=== PATIENT | male | born 1945 | race Caucasian/White ===

== ENCOUNTER 2017-05-12 07:02 | Inpatient (IN) | payer MEDICARE ==
[~2017-05-12] VITALS: Ht 177.8 cm; Wt 81.8 kg
[~2017-05-12 07:02] MED LIST: ASPI-611 PO; AZO1OS OP; ECHI350C PO; FLUT1DIS4 INH; GINK60TA2 PO; INUL1.5T3 PO; IPRA3AMP IH; LORA1TAB PO; MAGN250T11 PO; MULT-1085 PO; OMEP20TA5 PO; RESV100C PO; [UNRECOGNIZED DRUG - CODE] PO
[2017-05-12] MEDS ORDERED: ipratropium/albuterol 3ml nebule NEB ONE (07:15)
[2017-05-12] MEDS ORDERED: dexamethasone sod phosphate 10mg/ml inj IV STA (07:17)
[2017-05-12] MEDS ORDERED: azithromycin/NS 500mg/250ml 250 ML IV ONE (07:25)
[2017-05-12] MEDS ORDERED: LORazepam 2 mg/ml vial IV ONE (07:25)
[2017-05-12] MEDS ORDERED: CefTRIAXone 2gm/NS 100ml IVPB 100 ML IV ONE (07:25)
[2017-05-12 07:36] LABS: ABG BASE EXCESS -2.6 mmol/L (-2.0-3.0); ABG HCO3 19.4 mmol/L (22.0-26.0); ABG OXYGEN SATURATION 95.5 % (95-98); ABG PCO2 (T) 27.5 mmHg (35.0-48.0); ABG PH (T) 7.467 (7.350-7.450); ABG PO2 (T) 70.1 mmHg (83-108); ALLEN'S TEST Positive; FCOHb 0.8 % (0.5-1.5); FLOW 15 L/min; FMetHb 0.2 % (0.3-1.12); FO2Hb 94.5 % (94-100); RESPIRATORY RATE (OBSERVED) 20 b/min; TOTAL HEMOGLOBIN 16.1 G/dl (14.0-18.0)
[2017-05-12] MEDS ORDERED: LIDOcaine Viscous 15ml cup MM PRN (08:00)
[2017-05-12] MEDS ORDERED: mag hydrox/Alum hydrox/simeth 30ml oral suspension PO ONE (08:00)
[2017-05-12] MEDS: sucralfate 1gm/10ml UD suspension PO SCH (08:07)
[2017-05-12 08:10] LABS: BASOPHILS % (AUTO) 0.1 % (0-1); EOSINOPHILS # (AUTO) 0.1 X10'3 (0-0.9); EOSINOPHILS % (AUTO) 1.3 % (0-6); HEMATOCRIT 45.7 % (42.0-52.0); HEMOGLOBIN 15.7 g/dl (14.0-17.9); LYMPHOCYTES # (AUTO) 0.6 X10'3 (1.1-4.8); LYMPHOCYTES % (AUTO) 6.9 % (21-51); MEAN CORPUSCULAR HEMOGLOBIN 31.6 PG (27.0-31.0); MEAN CORPUSCULAR HGB CONC 34.4 % (33.0-36.5); MEAN CORPUSCULAR VOLUME 91.8 FL (78-98); MEAN PLATELET VOLUME 9.7 FL (7.4-10.4); MONOCYTES % (AUTO) 0.4 % (2-12); NEUTROPHILS # (AUTO) 7.8 X10'3 (1.8-7.7); NEUTROPHILS % (AUTO) 91.3 % (42-75); PLATELET COUNT 170 X10'3 (140-440); RED BLOOD COUNT 4.98 X10'6 (4.70-6.10); RED CELL DISTRIBUTION WIDTH 13.4 % (11.5-14.5); WHITE BLOOD COUNT 8.6 X10'3 (4.5-11.0)
[2017-05-12 08:27] LABS: ALANINE AMINOTRANSFERASE 27 U/L (12-78); ALBUMIN 3.5 G/DL (3.4-5.0); ALKALINE PHOSPHATASE 91 IU/L (46-116); ANION GAP 11 (8-16); ASPARTATE AMINO TRANSFERASE 23 U/L (10-37); BILIRUBIN,TOTAL 0.7 MG/DL (0.1-1.0); BLOOD UREA NITROGEN 19 MG/DL (7-18); BUN/CREATININE RATIO 19.6 (5.4-32.0); CALCIUM 8.4 MG/DL (8.5-10.1); CHLORIDE 106 MMOL/L (99-107); CREATININE 0.97 MG/DL (0.60-1.10); GLUCOSE 101 MG/DL (70-104); MAGNESIUM 1.6 MG/DL (1.5-2.4); SODIUM 142 MMOL/L (135-145); TOTAL CARBON DIOXIDE 25.3 MMOL/L (24-32); TOTAL PROTEIN 7.1 G/DL (6.4-8.2); eGFR 76 ML/MIN
[2017-05-12 08:28] LABS: POTASSIUM 4.2 MMOL/L (3.5-5.1)
[2017-05-12] MEDS ORDERED: potassium Cl 20 mEq SR tablet PO PRN ×2 (09:20)
[2017-05-12] MEDS ORDERED: oseltamivir phos 75mg capsule PO ONE (09:20)
[2017-05-12] MEDS ORDERED: morphine 2 MG/ML inj. syringe IV PRN ×2 (09:20)
[2017-05-12] MEDS ORDERED: acetaminophen 325mg tablet PO PRN (09:20)
[2017-05-12] MEDS ORDERED: potassium Cl 40MEQ/NS 500ml 500 ML IV PRN ×2 (09:20)
[2017-05-12] MEDS ORDERED: magnesium 2GM in 50ml NS 50 ML IV PRN (09:20)
[2017-05-12] MEDS ORDERED: magnesium Cl slow-release 64mg tablet PO PRN (09:20)
[2017-05-12] MEDS ORDERED: magnesium hydroxide 30ml (MOM) UD suspension PO PRN (09:20)
[2017-05-12] MEDS ORDERED: ondansetron/PF 4mg/2ml inj IV PRN (09:20)
[2017-05-12] MEDS ORDERED: magnesium 4gm in 100ml NS 100 ML IV PRN (09:20)
[2017-05-12 10:08] LABS: LARGE PLATELETS FEW; PLATELET ESTIMATE NORMAL
[2017-05-12] MEDS ORDERED: SAW160CA3 (12:24)
[2017-05-12] MEDS ORDERED: CITRUCEL (12:26)
[2017-05-12] MEDS: dorzolamide 2% ophthalmic drops 10ml EACHEYE SCH ×2 (12:35→19:05)
[2017-05-12 16:00] VITALS: BP 108/62
[2017-05-12] MEDS ORDERED: DOXY50CA2 PO (18:13)
[2017-05-12] MEDS ORDERED: TAMS0.4C32 PO (18:13)
[2017-05-12 18:44] VITALS: BP 108/62
[2017-05-12] MEDS: tamsulosin 0.4mg capsule PO SCH (19:04)
[2017-05-12] MEDS ORDERED: GINKGO BILOBA 60 MG PO SCH (20:00)
[2017-05-12] MEDS ORDERED: oseltamivir phos 75mg capsule PO SCH (20:00)
[2017-05-12] MEDS ORDERED: psyllium seed 3.4 gm packet PO SCH (21:00)
[2017-05-12] MEDS: mag hydrox/Alum hydrox/simeth 30ml oral suspension PO PRN (21:27)
[2017-05-12] MEDS: LORazepam 1 MG tablet PO PRN (21:27)
[2017-05-12 22:00] VITALS: BP 96/59
[2017-05-12] MEDS ORDERED: TRAZ-143 PO (22:11)
[2017-05-12] MEDS: traZODone 50mg tablet PO SCH (22:24)
[2017-05-13] MEDS: mag hydrox/Alum hydrox/simeth 30ml oral suspension PO PRN (01:16)
[2017-05-13 05:00] VITALS: BP 103/55
[2017-05-13 05:17] LABS: BASOPHILS % (AUTO) 0.1 % (0-1); EOSINOPHILS # (AUTO) 0.4 X10'3 (0-0.9); HEMATOCRIT 37.7 % (42.0-52.0); HEMOGLOBIN 13.1 g/dl (14.0-17.9); LYMPHOCYTES % (AUTO) 4.9 % (21-51); MEAN CORPUSCULAR HEMOGLOBIN 32.1 PG (27.0-31.0); MEAN CORPUSCULAR HGB CONC 34.6 % (33.0-36.5); MEAN CORPUSCULAR VOLUME 92.6 FL (78-98); MONOCYTES # (AUTO) 1.3 X10'3 (0-0.9); MONOCYTES % (AUTO) 6.3 % (2-12); NEUTROPHILS # (AUTO) 17.5 X10'3 (1.8-7.7); NEUTROPHILS % (AUTO) 86.7 % (42-75); PLATELET COUNT 154 X10'3 (140-440); RED BLOOD COUNT 4.07 X10'6 (4.70-6.10); RED CELL DISTRIBUTION WIDTH 13.1 % (11.5-14.5); WHITE BLOOD COUNT 20.2 X10'3 (4.5-11.0)
[2017-05-13 05:41] LABS: ALANINE AMINOTRANSFERASE 23 U/L (12-78); ALBUMIN 2.7 G/DL (3.4-5.0); ALBUMIN/GLOBULIN RATIO 0.8 (1.1-1.5); ALKALINE PHOSPHATASE 59 IU/L (46-116); ANION GAP 8 (8-16); ASPARTATE AMINO TRANSFERASE 16 U/L (10-37); BILIRUBIN,TOTAL 0.9 MG/DL (0.1-1.0); BLOOD UREA NITROGEN 22 MG/DL (7-18); BUN/CREATININE RATIO 22.9 (5.4-32.0); CALCIUM 7.8 MG/DL (8.5-10.1); CHLORIDE 107 MMOL/L (99-107); CREATININE 0.96 MG/DL (0.60-1.10); GLUCOSE 124 MG/DL (70-104); SODIUM 140 MMOL/L (135-145); TOTAL CARBON DIOXIDE 24.6 MMOL/L (24-32); TOTAL PROTEIN 5.9 G/DL (6.4-8.2); eGFR 77 ML/MIN
[2017-05-13] MEDS: K and/or MAG REPLACEMENT MC SCH (08:00)
[2017-05-13] MEDS ORDERED: RESVERATROL PO SCH (08:00)
[2017-05-13] MEDS ORDERED: [UNRECOGNIZED DRUG - OTHER] PO SCH (08:00)
[2017-05-13] MEDS ORDERED: GLUCOSAM CHONDRO HERB PO SCH (08:00)
[2017-05-13] MEDS ORDERED: ECHINACEA PURPUREA AERIAL PO SCH (08:00)
[2017-05-13] MEDS: dorzolamide 2% ophthalmic drops 10ml EACHEYE SCH ×2 (08:10→20:38)
[2017-05-13] MEDS: aspirin 81mg tab.chew PO SCH (08:10)
[2017-05-13] MEDS: magnesium oxide 400mg tablet PO SCH (08:10)
[2017-05-13] MEDS: pantoprazole 40mg Tablet.DR PO SCH (08:10)
[2017-05-13] MEDS: cefTRIAXone 1g/NS 100ml IVPB 100 ML IV SCH (08:10)
[2017-05-13] MEDS: sucralfate 1gm/10ml UD suspension PO SCH ×4 (08:10→20:37)
[2017-05-13] MEDS: tamsulosin 0.4mg capsule PO SCH (08:10)
[2017-05-13] MEDS: azithromycin 250mg tablet PO SCH (08:11)
[2017-05-13] MEDS: multivitamins, therapeutics tablet PO SCH (08:11)
[2017-05-13] MEDS: psyllium seed 3.4 gm packet PO SCH (08:11)
[2017-05-13] MEDS: predniSONE 20 mg tablet PO SCH (08:11)
[2017-05-13] MEDS: enoxaparin 40mg/0.4ml syringe SQ SCH (08:12)
[2017-05-13] MEDS: ipratropium/albuterol 3ml nebule NEB PRN ×3 (08:13→20:22)
[2017-05-13 10:00] VITALS: BP 97/48
[2017-05-13] MEDS: LORazepam 1 MG tablet PO PRN (11:04)
[2017-05-13] MEDS: lactobacillus rhamnosus 10,000 MMU CELLS/CAPSULE PO SCH (16:37)
[2017-05-13 18:00] VITALS: BP 99/59
[2017-05-13 22:00] VITALS: BP 93/34
[2017-05-13] MEDS: traZODone 50mg tablet PO SCH (22:01)
[2017-05-14 06:00] VITALS: BP 122/67
[2017-05-14 07:37] LABS: BASOPHILS # (AUTO) 0.1 X10'3 (0-0.2); BASOPHILS % (AUTO) 0.7 % (0-1); EOSINOPHILS # (AUTO) 0.2 X10'3 (0-0.9); EOSINOPHILS % (AUTO) 1.5 % (0-6); HEMATOCRIT 38.2 % (42.0-52.0); HEMOGLOBIN 12.8 g/dl (14.0-17.9); LYMPHOCYTES # (AUTO) 2.2 X10'3 (1.1-4.8); MEAN CORPUSCULAR HEMOGLOBIN 31.6 PG (27.0-31.0); MEAN CORPUSCULAR HGB CONC 33.6 % (33.0-36.5); MEAN CORPUSCULAR VOLUME 93.9 FL (78-98); MEAN PLATELET VOLUME 10.9 FL (7.4-10.4); MONOCYTES # (AUTO) 1.3 X10'3 (0-0.9); MONOCYTES % (AUTO) 8.5 % (2-12); NEUTROPHILS # (AUTO) 11.7 X10'3 (1.8-7.7); NEUTROPHILS % (AUTO) 75.3 % (42-75); PLATELET COUNT 157 X10'3 (140-440); RED BLOOD COUNT 4.07 X10'6 (4.70-6.10); RED CELL DISTRIBUTION WIDTH 13.2 % (11.5-14.5); WHITE BLOOD COUNT 15.5 X10'3 (4.5-11.0)
[2017-05-14 07:54] LABS: ALANINE AMINOTRANSFERASE 21 U/L (12-78); ALBUMIN 2.6 G/DL (3.4-5.0); ALBUMIN/GLOBULIN RATIO 0.8 (1.1-1.5); ALKALINE PHOSPHATASE 61 IU/L (46-116); ANION GAP 10 (8-16); ASPARTATE AMINO TRANSFERASE 14 U/L (10-37); BILIRUBIN,TOTAL 0.5 MG/DL (0.1-1.0); BLOOD UREA NITROGEN 17 MG/DL (7-18); BUN/CREATININE RATIO 17.5 (5.4-32.0); CALCIUM 7.9 MG/DL (8.5-10.1); CHLORIDE 109 MMOL/L (99-107); CREATININE 0.97 MG/DL (0.60-1.10); GLUCOSE 105 MG/DL (70-104); MAGNESIUM 1.9 MG/DL (1.5-2.4); SODIUM 142 MMOL/L (135-145); eGFR 76 ML/MIN
[2017-05-14 07:56] LABS: LARGE PLATELETS FEW; PLATELET ESTIMATE NORMAL
[2017-05-14] MEDS: K and/or MAG REPLACEMENT MC SCH (08:00)
[2017-05-14] MEDS: azithromycin 250mg tablet PO SCH (08:09)
[2017-05-14] MEDS: cefTRIAXone 1g/NS 100ml IVPB 100 ML IV SCH (08:09)
[2017-05-14] MEDS: magnesium oxide 400mg tablet PO SCH (08:10)
[2017-05-14] MEDS: predniSONE 20 mg tablet PO SCH (08:10)
[2017-05-14] MEDS: multivitamins, therapeutics tablet PO SCH (08:10)
[2017-05-14] MEDS: aspirin 81mg tab.chew PO SCH (08:10)
[2017-05-14] MEDS: sucralfate 1gm/10ml UD suspension PO SCH ×4 (08:10→20:15)
[2017-05-14] MEDS: psyllium seed 3.4 gm packet PO SCH (08:11)
[2017-05-14] MEDS: pantoprazole 40mg Tablet.DR PO SCH (08:11)
[2017-05-14] MEDS: lactobacillus rhamnosus 10,000 MMU CELLS/CAPSULE PO SCH ×2 (08:11→17:16)
[2017-05-14] MEDS: tamsulosin 0.4mg capsule PO SCH (08:11)
[2017-05-14] MEDS: dorzolamide 2% ophthalmic drops 10ml EACHEYE SCH ×2 (08:12→20:16)
[2017-05-14] MEDS: LORazepam 1 MG tablet PO PRN ×2 (08:15→20:15)
[2017-05-14] MEDS: enoxaparin 40mg/0.4ml syringe SQ SCH (08:16)
[2017-05-14 10:00] VITALS: BP 116/65
[2017-05-14] MEDS: ipratropium/albuterol 3ml nebule NEB PRN ×2 (10:21→17:44)
[2017-05-14 18:00] VITALS: BP 121/63
[2017-05-14] MEDS ORDERED: budesonide 0.5mg/2ml UD nebule IH SCH (21:00)
[2017-05-14 22:00] VITALS: BP 105/62
[2017-05-14] MEDS: traZODone 50mg tablet PO SCH (22:31)
[2017-05-15 05:30] VITALS: BP 118/68
[2017-05-15 07:05] LABS: BASOPHILS % (AUTO) 0.3 % (0-1); EOSINOPHILS # (AUTO) 0.2 X10'3 (0-0.9); EOSINOPHILS % (AUTO) 1.3 % (0-6); HEMATOCRIT 37.5 % (42.0-52.0); HEMOGLOBIN 13.1 g/dl (14.0-17.9); LYMPHOCYTES # (AUTO) 2.4 X10'3 (1.1-4.8); LYMPHOCYTES % (AUTO) 19.7 % (21-51); MEAN CORPUSCULAR HGB CONC 34.8 % (33.0-36.5); MEAN PLATELET VOLUME 10.4 FL (7.4-10.4); MONOCYTES # (AUTO) 0.6 X10'3 (0-0.9); MONOCYTES % (AUTO) 5.3 % (2-12); NEUTROPHILS # (AUTO) 8.9 X10'3 (1.8-7.7); NEUTROPHILS % (AUTO) 73.4 % (42-75); PLATELET COUNT 155 X10'3 (140-440); RED BLOOD COUNT 4.07 X10'6 (4.70-6.10); RED CELL DISTRIBUTION WIDTH 13.3 % (11.5-14.5); WHITE BLOOD COUNT 12.1 X10'3 (4.5-11.0)
[2017-05-15 07:37] LABS: ALANINE AMINOTRANSFERASE 15 U/L (12-78); ALBUMIN 2.7 G/DL (3.4-5.0); ALBUMIN/GLOBULIN RATIO 0.8 (1.1-1.5); ALKALINE PHOSPHATASE 59 IU/L (46-116); ANION GAP 9 (8-16); ASPARTATE AMINO TRANSFERASE 13 U/L (10-37); BILIRUBIN,TOTAL 0.6 MG/DL (0.1-1.0); BLOOD UREA NITROGEN 15 MG/DL (7-18); BUN/CREATININE RATIO 18.3 (5.4-32.0); CALCIUM 8.3 MG/DL (8.5-10.1); CHLORIDE 109 MMOL/L (99-107); CREATININE 0.82 MG/DL (0.60-1.10); GLUCOSE 99 MG/DL (70-104); MAGNESIUM 1.9 MG/DL (1.5-2.4); POTASSIUM 3.6 MMOL/L (3.5-5.1); SODIUM 141 MMOL/L (135-145); TOTAL PROTEIN 6.1 G/DL (6.4-8.2); eGFR > 90 ML/MIN
[2017-05-15] MEDS: sucralfate 1gm/10ml UD suspension PO SCH ×3 (07:44→16:25)
[2017-05-15] MEDS: lactobacillus rhamnosus 10,000 MMU CELLS/CAPSULE PO SCH ×2 (07:44→16:25)
[2017-05-15] MEDS: dorzolamide 2% ophthalmic drops 10ml EACHEYE SCH (07:45)
[2017-05-15] MEDS: pantoprazole 40mg Tablet.DR PO SCH (07:45)
[2017-05-15] MEDS: aspirin 81mg tab.chew PO SCH (07:46)
[2017-05-15] MEDS: cefTRIAXone 1g/NS 100ml IVPB 100 ML IV SCH (07:46)
[2017-05-15] MEDS: tamsulosin 0.4mg capsule PO SCH (07:46)
[2017-05-15] MEDS: magnesium oxide 400mg tablet PO SCH (07:48)
[2017-05-15] MEDS: multivitamins, therapeutics tablet PO SCH (07:49)
[2017-05-15] MEDS: predniSONE 20 mg tablet PO SCH (07:49)
[2017-05-15] MEDS: azithromycin 250mg tablet PO SCH (07:50)
[2017-05-15] MEDS: enoxaparin 40mg/0.4ml syringe SQ SCH (07:52)
[2017-05-15] MEDS: psyllium seed 3.4 gm packet PO SCH (07:52)
[2017-05-15] MEDS: LORazepam 1 MG tablet PO PRN (07:53)
[2017-05-15] MEDS: K and/or MAG REPLACEMENT MC SCH (08:00)
[2017-05-15 10:00] VITALS: BP 124/66
[2017-05-15] MEDS: ipratropium/albuterol 3ml nebule NEB PRN (10:36)
[2017-05-15] MEDS ORDERED: PRED10TA23 PO (16:33)
[2017-05-15] MEDS ORDERED: AZI25OT PO (16:33)
== END 2017-05-15 17:37 | disposition home or self-care (01) | DRG 871 ==
LOC: ER 07:03 → ED HOLD 09:18 → EDBEDREQ 15:28 → ORTHO 4S 16:34
PROVIDERS: ADMIT Legal Medicine; ATTEND Family Medicine
DX: A41.9 Sepsis, unspecified organism (principal); J18.1 Lobar pneumonia, unspecified organism; J44.0 Chronic obstructive pulmonary disease with (acute) lower respiratory infection; J44.1 Chronic obstructive pulmonary disease with (acute) exacerbation; F39 Unspecified mood [affective] disorder; F41.9 Anxiety disorder, unspecified; H40.9 Unspecified glaucoma; K21.9 Gastro-esophageal reflux disease without esophagitis; K57.90 Diverticulosis of intestine, part unspecified, without perforation or abscess without bleeding; N40.0 Benign prostatic hyperplasia without lower urinary tract symptoms; Z60.2 Problems related to living alone; Z79.82 Long term (current) use of aspirin; Z79.899 Other long term (current) drug therapy; Z87.891 Personal history of nicotine dependence
CPT/HCPCS: 36415; 36600; 71045; 71046; 80053; 82803; 83605; 83735; 83880; 84145; 84484; 85018; 85025; 87040; 87070; 87502; 87503; 93005; 94640; 94760; 96365; 99291; J0456; J0696; J1100; J1650; J2060; J7030; J7512; J7626

== ENCOUNTER 2021-01-26 09:05 | Emergency (ER) | payer MEDICARE ==
[~2021-01-26] VITALS: Ht 177.8 cm; Wt 81.8 kg
[~2021-01-26 09:05] MED LIST changes: +AZI25OT PO; +CITRUCEL; -IPRA3AMP IH; +IPRA3AMP31 IH; +SAW160CA3; +TAMS0.4C32 PO; +TRAZ-251 PO
[2021-01-26 09:22] VITALS: BP 95/59
[2021-01-26 09:52] LABS: BASOPHILS % (AUTO) 0.2 % (0-1); EOSINOPHILS % (AUTO) 0.4 % (0-6); HEMATOCRIT 42.3 % (42.0-52.0); HEMOGLOBIN 14.2 g/dl (14.0-17.9); LYMPHOCYTES # (AUTO) 0.3 X10'3 (1.1-4.8); LYMPHOCYTES % (AUTO) 2.7 % (21-51); MEAN CORPUSCULAR HEMOGLOBIN 31.9 PG (27.0-31.0); MEAN CORPUSCULAR HGB CONC 33.6 g/dL (33.0-36.5); MEAN CORPUSCULAR VOLUME 95.2 FL (78-98); MEAN PLATELET VOLUME 9.6 FL (7.4-10.4); MONOCYTES # (AUTO) 0.4 X10'3 (0-0.9); MONOCYTES % (AUTO) 3.6 % (2-12); NEUTROPHILS # (AUTO) 10.3 X10'3 (1.8-7.7); NEUTROPHILS % (AUTO) 93.1 % (42-75); PLATELET COUNT 187 X10'3 (140-440); RED BLOOD COUNT 4.44 X10'6 (4.70-6.10)
[2021-01-26 10:05] LABS: ALANINE AMINOTRANSFERASE 37 U/L (12-78); ALBUMIN 3.2 G/DL (3.4-5.0); ALBUMIN/GLOBULIN RATIO 0.8 (1.1-1.5); ALKALINE PHOSPHATASE 88 IU/L (46-116); ANION GAP 7 (8-16); ASPARTATE AMINO TRANSFERASE 28 U/L (10-37); BILIRUBIN,TOTAL 0.9 MG/DL (0.1-1.0); BLOOD UREA NITROGEN 17 MG/DL (7-18); BUN/CREATININE RATIO 17.2 (5.4-32.0); CALCIUM 8.4 MG/DL (8.5-10.1); CHLORIDE 105 MMOL/L (99-107); CREATININE 0.99 MG/DL (0.60-1.10); GLUCOSE 121 MG/DL (70-104); POTASSIUM 4.3 MMOL/L (3.5-5.1); SODIUM 139 MMOL/L (135-145); TOTAL CARBON DIOXIDE 26.6 MMOL/L (24-32); TOTAL PROTEIN 7.1 G/DL (6.4-8.2); eGFR 73 ML/MIN
--- NOTE | 2021-01-26 10:16 | NUR ---
SARAH ([facility]) [phone]
[2021-01-26] MEDS ORDERED: azithromycin 250mg tablet PO ONE (10:25)
[2021-01-26] MEDS ORDERED: HYDROcodone/acetaminophen 5mg/325mg tablet PO ONE (10:25)
[2021-01-26] MEDS ORDERED: AZIT250T2 PO (10:26)
[2021-01-26] MEDS ORDERED: HYDR-3965 PO (10:26)
--- NOTE | 2021-01-26 10:39 | NUR ---
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 PAT AWARE.
== END 2021-01-26 10:54 | disposition home or self-care (01) ==
LOC: ER 09:05
DX: J18.9 Pneumonia, unspecified organism (principal); S22.32XS Fracture of one rib, left side, sequela; J44.9 Chronic obstructive pulmonary disease, unspecified; N40.0 Benign prostatic hyperplasia without lower urinary tract symptoms; Z79.82 Long term (current) use of aspirin; Z79.2 Long term (current) use of antibiotics; Z79.899 Other long term (current) drug therapy; X58.XXXS Exposure to other specified factors, sequela
CPT/HCPCS: 36415; 71045; 80053; 83605; 83880; 85025; 87040; 93005; 99285

== ENCOUNTER 2024-07-16 02:40 | Emergency (ER) | payer BC ==
[~2024-07-16] VITALS: Ht 177.8 cm; Wt 80.3 kg
[~2024-07-16 02:40] MED LIST changes: +ALFU10TA47 PO; +AMOX-580 PO; -ASPI-611 PO; -AZI25OT PO; -AZO1OS OP; +CITA10TA93 PO; -CITRUCEL; +DUTA0.5C36 PO; -FLUT1DIS4 INH; +OMEP20TA43 PO; -OMEP20TA5 PO; +PRED20TA PO; +SACC250C PO; -SAW160CA3; -TAMS0.4C32 PO; -TRAZ-251 PO
[2024-07-16] MEDS ORDERED: LIDO700A32 TOP (03:00)
[2024-07-16] MEDS: ketorolac trometh 15mg/ml vial 15 MG/ML ML IM ONE (03:06)
[2024-07-16 03:08] VITALS: BP 133/74; PULSE 88; RESP 18; TEMP 97.5; O2SAT 100
== END 2024-07-16 03:12 | disposition home or self-care (01) ==
LOC: ER 02:41
DX: S39.012A Strain of muscle, fascia and tendon of lower back, initial encounter (principal); J44.9 Chronic obstructive pulmonary disease, unspecified; F41.9 Anxiety disorder, unspecified; W50.2XXA Accidental twist by another person, initial encounter; Y93.89 Activity, other specified; Y92.89 Other specified places as the place of occurrence of the external cause; Y99.8 Other external cause status
CPT/HCPCS: 96372; 99284; J1885

== ENCOUNTER 2024-09-09 05:47 | Emergency (ER) | payer BC ==
[~2024-09-09] VITALS: Ht 177.8 cm; Wt 82.9 kg
[~2024-09-09 05:47] MED LIST changes: +LIDO-52 TOP
[2024-09-09] MEDS ORDERED: CYCL-394 PO (07:04)
[2024-09-09] MEDS ORDERED: METH4TAB81 PO (07:04)
--- NOTE | 2024-09-09 07:07 | Physician Documentation ---
History of Present Illness General Chief Complaint: Back Pain Stated Complaint: LEG PAIN Time Seen by MD: 06:39 Primary Medical Doctor: Dr. Anders Doll Mode of Arrival: POV History of Present Illness Initial Comments The patient is an 79-year-old male with a history of COPD and low back strain who presents with symptoms of sciatica it began about 3:00 a.m. this past Monday, two days ago. He denies any bowel or bladder dysfunction. His last attack was around Ameya of last year. He gets this periodically when he twists wrong in bed. He has had very little sleep over the past two days. He has been taking ibuprofen and acetaminophen. Medication Reconciliation Allergies: Coded Allergies: No Known Allergies (Unverified , 07/16/24) Scheduled Alfuzosin Hcl* (Uroxatral*), 1 TAB PO DAILY, (Reported) Amox Tr/Potassium Clavulanate 875/125 MG (Augmentin 875/125 MG), 1 TAB PO BID Citalopram Hydrobromide (Citalopram HBr), 1 TAB PO DAILY, (Reported) Dutasteride (Dutasteride), 0.5 PO DAILY, (Reported) Echinacea Purpurea Aerial (Echinacea), 350 MG PO DAILY, (Reported) Ginkgo Biloba (Ginkgo), 60 MG PO BID, (Reported) Zqbtqkbr-Jonocyd-Zixl 149-Hyal (Glucosamine-Chondr Complex Tab), 1 EACH PO DAILY, (Reported) Inulin (Fiber Choice), 2 TAB PO DAILY, (Reported) Ipratropium/Albuterol Sulfate (Duoneb 2.5-0.5 Mg/3 Ml Soln), 3 ML IH BIDAC, (Reported) Lidocaine (Lidoderm), 1 PATCH TOP DAILY Lorazepam (Lorazepam), 1 MG PO BID, (Reported) Magnesium Oxide (Magnesium), 250 MG PO DAILY, (Reported) Multivitamin (Multi Vitamin Daily), 1 EACH PO DAILY, (Reported) Omeprazole (Omeprazole), 1 TAB PO BID, (Reported) Prednisone* (Prednisone*), 2 TAB PO DAILY Resveratrol (Resveratrol), 1 CAP PO DAILY, (Reported) Saccharomyces Boulardii (Florastor), 1 CAP PO Q12H Past Medical History Past Medical History: Glaucoma, COPD, BPH, Anxiety Past Surgical History: no surgical history Alcohol Use: Rarely Drug Use: none Lives with: Alone Lives In: Home Occupation: retired Review of Systems ROS Constitutional: Denies chills, fatigue, fever, weight gain or weight loss. HEENT: Denies hearing loss, sinus pressure or visual changes. Respiratory: Denies cough, shortness of breath or wheezing. Cardiovascular: Denies chest pain, pain while walking (claudication), edema or palpitations. Gastrointestinal: Denies abdominal pain, blood in stool, constipation, diarrhea, heartburn, loss of appetite, nausea or vomiting. Genitourinary: Denies painful urination (dysuria), excessive amount of urine (polyuria) or urinary frequency. Metabolic/Endocrine: Denies cold intolerance, heat intolerance, excessive thirst (polydipsia) or excessive hunger (polyphagia). Neurological: Denies dizziness, extremity numbness, extremity weakness, headaches, seizures or tremors. Psychiatric: Denies anxiety or depression. Integumentary: Denies breast discharge, breast lump, hives, mole change(s), rash or skin lesion. Musculoskeletal: Back pain radiating down left buttock Hematologic: Denies easily bleeding, easily bruises, lymphedema or issues with blood clots. Immunologic: Denies food allergies or seasonal allergies. Physical Exam Physical Exam Vital Signs: Temperature: 97.6, Heart Rate: 66, Respiratory Rate: 10, BP: 129/76, Pulse Oximetry: 95, Weight: 82.900 Oxygen Flow Rate: 0 Physical Exam Physical Exam Vitals and nursing note reviewed. Constitutional: General: Patient is awake, alert, oriented x 4 in no acute distress and well appearing. Speech is clear and lucid. Appearance: Normal appearance. Patient is not ill-appearing, toxic-appearing or diaphoretic. HENT: Head: Normocephalic and atraumatic. Mouth/Throat: Mouth: Mucous membranes are moist. Pharynx: Oropharynx is clear. Eyes: General: No scleral icterus. Extraocular Movements: Extraocular movements intact. Pupils: Pupils are equal, round, and reactive to light. Cardiovascular: Rate and Rhythm: Normal rate and regular rhythm. Heart sounds: No murmur heard. Pulmonary: Effort: No respiratory distress. Breath sounds: No wheezing, rhonchi or rales. Abdominal: General: There is no distension. Palpations: There is no fluid wave, hepatomegaly or mass. Tenderness: There is no abdominal tenderness. There is no guarding. Musculoskeletal: General: No swelling or deformity. Skin: Coloration: Skin is not jaundiced. Findings: No erythema or rash. Neurological: Mental Status: Patient is alert. Progress Results/Orders Results/Orders Vital Signs 09/09/24 09/09/24 05:49 06:03 Temp 97.6 Pulse 66 Resp 16 10 B/P (MAP) 129/76 Pulse Ox 95 O2 Flow Rate 0 Medical Decision Making Findings This 79-year-old man presents with left-sided sciatica without bowel or bladder dysfunction, or fever, that began about 3:00 a.m. Monday when he twisted wrong in bed. He gets this periodically, last attack was about Ameya time of last year. He has been taking acetaminophen and ibuprofen without relief. He has gotten not much sleep over the past two days. I am going to trial a Medrol Dosepak along with cyclobenzaprine at night. He does have a PCP he can follow-up with. He understands and agrees with this approach. Departure Disposition: HOME / SELF CARE / HOMELESS Impression: Primary Impression: Sciatica Condition: Stable Referrals: NO PRIMARY CARE PROVIDER (PCP) Prescriptions Cyclobenzaprine HCl (Cyclobenzaprine HCl) 10 Mg Tablet 1 TAB PO HS for muscle spasms for 10 Days, #10 TAB Prov: DUSTIN MORLEY MD 09/09/24 Methylprednisolone (Medrol Dosepak) 4 Mg Tab.ds.pk 4 MG PO DAILY, #1 TAB 1 dose pack per packaging Prov: DUSTIN MORLEY MD 09/09/24 Education Educated: Patient Educated regarding: diagnosis, treatment, prognosis, need for follow up Signature Scribe Signature: . Attestation: . DUSTIN MORLEY MD Sep 09, 2024 07:07
[2024-09-09 07:28] VITALS: BP 133/66; PULSE 66; RESP 16; TEMP 97.6; O2SAT 96
== END 2024-09-09 07:31 | disposition home or self-care (01) ==
LOC: ER 05:47
DX: M54.32 Sciatica, left side (principal); J44.9 Chronic obstructive pulmonary disease, unspecified; F41.9 Anxiety disorder, unspecified
CPT/HCPCS: 99283